=== PATIENT | female | born 1955 | race Caucasian/White ===

== ENCOUNTER → 2020-11-22 | Outpatient (CLI) | payer OTHER ==
[~2020-11-22] MED LIST: ALDACTONE25 MG PO; ATIVAN1 MG PO; CEFUROXIME250 MG PO; CLARITIN 10MG T10 MG PO; COREG 3.125M3.125 MG PO; CRESTOR5 MG PO; NEURONTIN 300300 MG PO; PROTONIX40 MG PO; SYNTHROID25 MCG PO; ULTRAM50 MG PO
[2020-11-23 11:14] LABS: RHEUMATOID ARTHRITIS FACTOR <10.0 IU/mL (0.0-13.9)
[2020-11-24 00:09] LABS: CCP ANTIBODIES IGG/IGA 2 units (0-19)
== END ==
LOC: LAB 10:33
PROVIDERS: Nurse Practitioner Family
DX: M79.642 Pain in left hand (principal); M79.641 Pain in right hand; D89.9 Disorder involving the immune mechanism, unspecified; R76.8 Other specified abnormal immunological findings in serum; M79.10 Myalgia, unspecified site; M19.042 Primary osteoarthritis, left hand; M19.041 Primary osteoarthritis, right hand
CPT/HCPCS: 36415; 73030; 73130; 82550; 82728; 83520; 84630; 85652; 86140; 86200; 86431